=== PATIENT | female | born 1955 | race Caucasian/White ===

== ENCOUNTER 2018-03-03 06:40 | Day surgery (SDC) | payer OTHER ==
[2018-02-28 15:21] VITALS: BMI 20.9
[2018-03-03] MEDS ORDERED: ROPIVACAINE HCL 0.5% 30ML VIAL ONE (07:11)
[2018-03-03] MEDS ORDERED: DEXAMETHASONE SOD PHOSPHATE/PF 10 MG/ML SDV ONE (07:11)
[2018-03-03] MEDS ORDERED: MIDAZOLAM HCL 2 MG/2 ML SINGLE DOSE VIAL ONE (07:11)
[2018-03-03] MEDS ORDERED: BUPIVACAINE HCL/PF 0.5% (5MG/ML) 10 ML VIAL ONE (07:14)
[2018-03-03] MEDS ORDERED: SUCCINYLCHOLINE CHLORIDE 200 MG/10 ML VIAL ONE (07:28)
[2018-03-03] MEDS ORDERED: ceFAZolin SODIUM 1 GM VIAL ONE (07:28)
[2018-03-03] MEDS ORDERED: DEXMEDETOMIDINE HCL 200 MCG/2 ML ML IVPB ONE (07:34)
[2018-03-03] MEDS ORDERED: ONDANSETRON 4 MG/2 ML VIAL IVPUSH PRN (11:06)
[2018-03-03] MEDS ORDERED: oxyCODONE HCL 5 MG TABLET PO PRN (11:06)
[2018-03-03] MEDS ORDERED: LACTATED RINGERS SOLUTION 1,000 ML IV SCH (11:15)
[2018-03-03 12:17] VITALS: BP 99/54; PULSE 65; TEMP 98.1
--- NOTE | 2018-03-03 17:37 | OP ---
DATE OF OPERATION: 03/03/2018 PREOPERATIVE DIAGNOSIS: Left distal radius fracture. POSTOPERATIVE DIAGNOSIS: Left distal radius fracture. PROCEDURE: Left distal radius open reduction, internal fixation. SURGEON: Fabrice Trujillo MD TESTER VIBRATOR EQUIPMENT: KAN Rodrigues, whose skillful assistance was necessary for the safe and timely performance of this procedure. Mr. Escalante was able to help provide limb positioning, retraction, traction, significant fracture reduction and insertion of orthopedic fixation hardware. ANESTHESIA: Regional plus sedation. POSTOPERATIVE CONDITION: Stable. COMPLICATIONS: None. IMPLANTS: Acumed distal radius plate with nonlocking 3.5-mm shaft screws and locking 2.3-mm distal screws and pegs. TOURNIQUET TIME: 52 minutes. INDICATIONS: This is a pleasant woman who suffered a trip and fall. She was found to have a distal radius fracture. This was initially reduced in the office. However, the reduction was not anatomic. She also has a history of osteoporosis and this was noted in her dominant hand. Given these factors, we discussed the option of operative versus nonoperative care. After reviewing the risks, benefits and alternatives of each option, the patient elected for operative treatment. Operative risks were reviewed in detail, including bleeding, infection, neurovascular injury, need for further surgery, postoperative pain and stiffness, nonunion, malunion, hardware failure and cutout. We discussed medical risks such as heart attack, stroke, DVT, PE and . We discussed the possibility of removal of hardware or tendon rupture. I addressed all of the patients questions and concerns. She voiced understanding and elected to proceed. DESCRIPTION OF PROCEDURE: The patient was brought to the operating room after administration of regional block in the preoperative holding area. The left upper extremity was prepped and draped in the usual sterile fashion. A preoperative dose of antibiotics was given and the usual time-out procedure was performed. The limb was now exsanguinated and the tourniquet was inflated to 250 mmHg. An incision was planned out along the course of the FCR tendon. This was then carried down through skin to subcutaneous tissue. Blunt spreading was used to expose the FCR. A second structure was seen just adjacent to the FCR, which was not typical for the anatomy of the region. This had a somewhat yellow color to it and was felt to be an anatomic variant of the median nerve. No additional action was taken. Care was taken on retraction. Blunt spreading was now carried along the radial border of the FCR and exposed the area of the pronator. The pronator was seen to be shredded on exposure. It was then gently elevated off the anterior aspect of the radius. This exposed the fracture site. The fracture site was debrided of any loose debris. Moderate comminution was noted. The fracture extended into multiple fragments both medially and laterally. The fracture was attempted to be reduced. However, the brachial radialis was preventing anatomic reduction. A brachial radialis tenotomy was now performed. Reduction was now attempted again and an anatomic reduction was obtained. The plate was now chosen and affixed to the bone utilizing a K-wire. Radiography was used to confirm plate placement. The 3.5-mm screw was then placed into the oblong hole. Pin placement was verified again fluoroscopically. K-wires were now placed into the distal aspect of the plates to maintain the reduction. Reduction was verified once more fluoroscopically. The distal screw holes were now drilled and then filled with screws of appropriate length. The two radial styloid holes were then drilled until the pegs were of appropriate length. The entire construct was examined both digitally and fluoroscopically. Both plate placement and fracture reduction were satisfactory. The wound was now copiously irrigated. The subcutaneous tissue was approximated using 4-0 Vicryl. The skin was closed using 4-0 nylon. Sterile dressings were placed. The tourniquet was let down after 52 minutes. The patient was transferred to the recovery room in stable condition. Cheri YBARRA/[id number]
== END 2018-03-03 12:10 | disposition home or self-care (01) ==
LOC: FASU 06:40
PROVIDERS: ATTEND Orthopaedic Surgery Sports Medicine
PROC: 0LN60ZZ Release Left Lower Arm and Wrist Tendon, Open Approach (ICD-10-PCS; 2018-03-03)
PROC: 0PSJ04Z Reposition Left Radius with Internal Fixation Device, Open Approach (ICD-10-PCS; principal; 2018-03-03 07:30)
DX: S52.502A Unspecified fracture of the lower end of left radius, initial encounter for closed fracture (principal); W01.0XXA Fall on same level from slipping, tripping and stumbling without subsequent striking against object, initial encounter; Y93.9 Activity, unspecified; Y92.9 Unspecified place or not applicable
CPT/HCPCS: 73110-TC-LR-FY; 94760